=== PATIENT | female | born 1960 | race Caucasian/White ===

== ENCOUNTER 2021-05-02 06:35 | Day surgery (SDC) | payer MEDICARE ==
[~2021-05-02] VITALS: Ht 160 cm; Wt 79.5 kg
[~2021-05-02 06:35] MED LIST: ALBU18HF2 INH; ALEN70TA60 PO; ATOR-2 PO; BECL7.3A INH; BUPR100T4 PO; DIPH1TAB PO; DULO-31 PO; FLUO15OI15 TP; GABA-532 PO; HYDR-4353 PO; HYDR50TA65 PO; IBUP-1984 PO; LISI40TA13 PO; TRAZ-251 PO; VENL-191 PO
[2021-05-02] MEDS ORDERED: normal saline 1000ml 1,000 ML IV SCH (06:55)
[2021-05-02] MEDS ORDERED: BUPR300T86 PO (07:15)
[2021-05-02] MEDS ORDERED: LISI20TA28 PO (07:15)
[2021-05-02 07:19] VITALS: BP 150/79
[2021-05-02 07:50] VITALS: BP 150/79
[2021-05-02] MEDS ORDERED: fentaNYL/PF 50MCG/1 ML 2ML syringe ONE (08:34)
[2021-05-02] MEDS ORDERED: heparin sodium, porcine/PF 100unit/ml 5ML syringe ONE (08:34)
[2021-05-02 10:00] VITALS: BP 120/66
== END 2021-05-02 10:30 | disposition home or self-care (01) ==
LOC: SSTAY O 06:35
PROVIDERS: ATTEND Preventive Medicine Aerospace Medicine
DX: C54.8 Malignant neoplasm of overlapping sites of corpus uteri (principal)
CPT/HCPCS: 36561; 76937; 77001; 99152; 99153; C1769; C1788; C1894; J1642; J3010; J7030